=== PATIENT | male | born 1980 | race Two or more races ===

== ENCOUNTER 2018-06-05 15:47 | Emergency (ER) | payer SELFPAY ==
--- NOTE | 2018-06-05 16:38 | ED Physician Chart ---
ED Chief Complaint/HPI - Patient Information Date Seen:: 06/05/18 Time Seen:: 16:00 Chief Complaint:: SCABIES INFECTION History of Present Illness:: THIS IS A 38 YO MALE BIB THE EMS WITH CONCERNED ABOUT A SCABIES INFECTION, HOWEVER Historian:: Patient Review:: Nurse's Note Reviewed ED Review of Systems - Review of Systems General/Constitutional: Other (THE PATIENT REFUSED TO GIVE A REVIEW OF SYSTEMS) ED Past Medical History - Past Medical History Obtainable: Yes (THE PATIENT REFUSED TO GIVE THE PAST MED HISTORY.) Social History: Other (REFUSED) Surgical History: other (REFUSED) Psychiatricy History: Other (REFUSED) ED Physical Exam - Physical Examination Other Gen/Cons comments:: THE PATIENT REFUSED THE PHYSICAL AND WANTS TO SIGN OUT AMA ED Septic Shock - . Is Septic Shock (SBP<90, OR Lactate>4 mmol\L) present?: No ED Reassessment (Disposition) - Diagnosis Diagnosis:: SCABIES INFECTION - Aftercare/Follow up Instructions Aftercare/Follow-Up Instructions:: Counseled pt regarding lab results/diagnosis & need follow up, Refer to Discharge Instructions, Counseled pt & family regarding lab results/diagnosis & need follow up - Patient Disposition Discharge/Transfer:: Against Medical Advice Condition at Disposition:: Unchanged
== END 2018-06-05 16:00 | disposition left against medical advice (07) ==
LOC: ER 15:47 → EDBD 15:47 → ER 16:00
DX: B86 Scabies (principal)
CPT/HCPCS: Z7502

== ENCOUNTER 2019-01-08 23:33 | Emergency (ER) | payer SELFPAY ==
--- NOTE | 2019-01-09 00:04 | ED Physician Chart ---
ED Chief Complaint/HPI - Patient Information Date Seen:: 01/09/19 Time Seen:: 00:01 Chief Complaint:: knee pains History of Present Illness:: 38 yr old male homeless walking much with leg pains no swelling bruising or trauma Allergies:: Allergies Allergy/AdvReac Type Severity Reaction Status Date / Time No Known Allergies Allergy Verified 01/08/19 23:51 Vitals:: Vital Signs - 8 hr 01/08/19 23:40 Temp 97.3 F HR 99 RR 18 BP 121/74 O2 Sat % 94 ED Review of Systems - Review of Systems General/Constitutional: No fever, No chills, No weight loss, No weakness, No diaphoresis, No edema, No loss of appetite Skin: No skin lesions, No rash, No bruising Head: No headache, No light-headedness Eyes: No loss of vision, No pain, No diplopia ENT: No earache, No nasal drainage, No sore throat, No tinnitus Neck: No neck pain, No swelling, No thyromegaly, No stiffness, No mass noted Cardio Vascular: No chest pain, No palpitations, No PND, No orthopnea, No edema Pulmonary: No SOB, No cough, No sputum, No wheezing GI: No nausea, No vomiting, No diarrhea, No pain, No melena, No hematochezia, No constipation, No hematemesis G/U: No dysuria, No frequency, No hematuria Musculoskeletal: No bone or joint pain, No back pain, No muscle pain Endocrine: No polyuria, No polydipsia Psychiatric: No prior psych history, No depression, No anxiety, No suicidal ideation Hematopoietic: No bruising, No lymphadenopathy Allergic/Immuno: No urticaria, No angioedema Neurological: No syncope, No focal symptoms, No weakness, No paresthesia, No headache, No seizure, No dizziness, No confusion, No vertigo ED Past Medical History - Past Medical History Past Medical History: No significant medical hx Family Medical History - Family Member Mother History Unknown: Yes ED Physical Exam - Physical Examination General/Constitutional: Awake, Well-developed, well-nourished, Alert, No distress, GCS 15, Non-toxic appearing, Ambulatory Head: Atraumatic Eyes: Lids, conjuctiva normal, PERRL, EOMI Skin: Nl inspection, No rash, No skin lesions, No ecchymosis, Well hydrated, No lymphadenopathy ENMT: External ears, nose nl, Nasal exam nl, Lips, teeth, gums nl Neck: Nontender, Full ROM w/o pain, No JVD, No nuchal rigidity, No bruit, No mass, No stridor Respiratory: Nl effort/Exclusion, Clear to Auscultation, No Wheeze/Rhonchi/Rales Cardio Vascular: RRR, No murmur, gallop, rubs, NL S1 S2 GI: No tenderness/rebounding/guarding, No organomegaly, No hernia, Normal BS's, Nondistended, No mass/bruits, No McBurney tenderness : No CVA tenderness Extremities: No tenderness or effusion, Full ROM, normal strength in all extremities, No edema, Normal digits & nails Neuro/Psych: Alert/oriented, DTR's symmetric, Normal sensory exam, Normal motor strength, Judgement/insight normal, Mood normal, Normal gait, No focal deficits Misc: Normal back, No paraspinal tenderness ED Assessment - Assessment General Assessment: knee pains ED Septic Shock - . Is Septic Shock (SBP<90, OR Lactate>4 mmol\L) present?: No - <6hrs of presentation: Vital Signs: Vital Signs - 8 hr 01/08/19 23:40 Temp 97.3 F HR 99 RR 18 BP 121/74 O2 Sat % 94 ED Reassessment (Disposition) - Reassessment Reassessment:: etoh abuse homelessness knee pains - Diagnosis Diagnosis:: as above - Aftercare/Follow up Instructions Aftercare/Follow-Up Instructions:: Counseled pt regarding lab results/diagnosis & need follow up - Patient Disposition Discharge/Transfer:: Home Condition at Disposition:: Stable
--- NOTE | 2019-01-09 09:51 | Diagnostic Imaging Report ---
Left knee 3 views Indication: pain Comparison: none Findings: Minimal degenerative changes are noted. No evidence of an acute fracture or dislocation of joint effusion or focal soft tissue swelling. There is suggestion of minimal atherosclerosis. Impression: No evidence of an acute fracture. Minimal degenerative changes. Suggestion of minimal atherosclerosis In the setting of trauma, if clinical symptoms persist and there is continued concern for an occult fracture, follow up exams in 5-7 days is suggested.
--- NOTE | 2019-01-09 09:52 | Diagnostic Imaging Report ---
Right knee 2 views Indication: pain Comparison: none Findings: Minimal degenerative changes are noted. No acute fracture. No joint effusion. No dislocation. There is suggestion of minimal atherosclerosis. Impression: No evidence of an acute fracture. Minimal degenerative changes. Suggestion of minimal atherosclerosis. In the setting of trauma, if clinical symptoms persist and there is continued concern for an occult fracture, follow up exams in 5-7 days is suggested.
== END 2019-01-09 00:23 | disposition home or self-care (01) ==
LOC: ER 23:33
DX: M25.561 Pain in right knee (principal); M25.562 Pain in left knee; F10.10 Alcohol abuse, uncomplicated; R21 Rash and other nonspecific skin eruption; Z59.0 Homelessness; Y90.9 Presence of alcohol in blood, level not specified
CPT/HCPCS: 73560-TC-LT; 73560-TC-RT; Z7502

== ENCOUNTER 2019-01-16 21:29 | Emergency (ER) | payer SELFPAY ==
--- NOTE | 2019-01-16 22:22 | ED Physician Chart ---
ED Chief Complaint/HPI - Patient Information Date Seen:: 01/16/19 Time Seen:: 22:21 Chief Complaint:: Abdominal pain History of Present Illness:: 38 yo homeless male with history of polysubstance abuse, developed abdominal pain after drank alcohol. Pt was lying outside a liquor store and some one called 911. Pt was brought by ambulance to ER. Pt had previous ER visits for knee pain and multiple facial skin lesions. Allergies:: Allergies Allergy/AdvReac Type Severity Reaction Status Date / Time No Known Allergies Allergy Verified 01/08/19 23:51 Vitals:: Vital Signs - 8 hr 01/16/19 21:30 Temp 99.8 F HR 108 RR 18 BP 115/78 O2 Sat % 99 ED Review of Systems - Review of Systems General/Constitutional: No fever Skin: Skin lesions Head: No headache Eyes: No pain ENT: No nasal drainage Neck: No neck pain Cardio Vascular: No chest pain Pulmonary: No SOB GI: Pain Musculoskeletal: Bone or joint pain Neurological: No focal symptoms ED Past Medical History - Past Medical History Past Medical History: Arthritis, Other (Skin lesions, polysubstance abuse) Social History: Alcohol, Illicit Drug Use Family Medical History - Family Member Mother History Unknown: Yes ED Physical Exam - Physical Examination General/Constitutional: Awake Other Skin comments:: Multiple facial skin lesions, with dark brown to black scabs, 0.5-1cm in size, non-itchy ENMT: Nasal exam nl Neck: No nuchal rigidity Respiratory: Clear to Auscultation Cardio Vascular: RRR, No murmur, gallop, rubs, NL S1 S2 Other GI comments:: Periumbilical tenderness Extremities: normal strength in all extremities Neuro/Psych: No focal deficits ED Labs/Radiology/EKG Results - Lab Results Results: Laboratory Last Values WBC 11.4 Th/cmm (4.8-10.8) H 01/16/19 22:30 RBC 3.18 Mil/cmm (4.30-5.70) L 01/16/19 22:30 Hgb 8.1 gm/dL (12-16) L 01/16/19 22:30 Hct 24.5 % (41.0-60) L 01/16/19 22:30 MCV 77.1 fl (80-99) L 01/16/19 22:30 MCH 25.5 pg (26.0-30.0) L 01/16/19 22:30 MCHC Differential 33.1 pg (28.0-36.0) 01/16/19 22:30 RDW 26.2 % (11.5-20.0) H 01/16/19 22:30 Plt Count 175 Th/cmm (150-400) 01/16/19 22:30 MPV 7.6 fl 01/16/19 22:30 Add Manual Diff YES 01/16/19 22:30 Band Neutrophils % 2 % (0-10) 01/16/19 22:30 Neutrophils (Manual) 76 % (40-80) 01/16/19 22:30 Lymphocytes 11 % (20-50) L 01/16/19 22:30 Monocytes 9 % (2-10) 01/16/19 22:30 Eosinophils 0 % (0-5) 01/16/19 22:30 Basophils 2 % (0-3) 01/16/19 22:30 Platelet Estimate ADEQUATE (NORMAL) 01/16/19 22:30 Anisocytosis 2+ 01/16/19 22:30 Microcytosis 1+ 01/16/19 22:30 PT 13.4 SECONDS (9.5-11.5) H 01/16/19 22:30 INR 1.31 (0.5-1.4) 01/16/19 22:30 PTT (Actin FS) 30.1 SECONDS (26.0-38.0) 01/16/19 22:30 Sodium 134 mEq/L (136-145) L 01/16/19 22:17 Potassium 2.9 mEq/L (3.5-5.1) L* 01/16/19 22:17 Chloride 98 mEq/L (98-107) 01/16/19 22:17 Carbon Dioxide 23.9 mEq/L (21.0-31.0) 01/16/19 22:17 Anion Gap 15.0 (7.0-16.0) 01/16/19 22:17 BUN 5 mg/dL (7-25) L 01/16/19 22:17 Creatinine 0.5 mg/dL (0.7-1.3) L 01/16/19 22:17 Est GFR ( Amer) > 60.0 ml/min (>90) 01/16/19 22:17 Est GFR (Non-Af Amer) > 60.0 ml/min 01/16/19 22:17 BUN/Creatinine Ratio 10.0 01/16/19 22:17 Glucose 80 mg/dL (70-105) 01/16/19 22:17 Whole Bld Lactic Acid 0.66 mmol/L (0.60-1.99) 01/17/19 03:15 Calcium 8.0 mg/dL (8.6-10.3) L 01/16/19 22:17 Total Bilirubin 5.2 mg/dL (0.3-1.0) H 01/16/19 22:17 AST 141 U/L (13-39) H 01/16/19 22:17 ALT 25 U/L (7-52) 01/16/19 22:17 Alkaline Phosphatase 265 U/L (34-104) H 01/16/19 22:17 Total Protein 6.8 gm/dL (6.0-8.3) 01/16/19 22:17 Albumin 3.0 gm/dL (4.2-5.5) L 01/16/19 22:17 Globulin 3.8 gm/dL 01/16/19 22:17 Albumin/Globulin Ratio 0.8 (1.0-1.8) L 01/16/19 22:17 Amylase 20 U/L (29-103) L 01/16/19 22:17 Lipase 12 U/L (11-82) 01/16/19 22:17 Urine Source MIDSTREAM 01/17/19 06:10 Urine Color ORANGE 01/17/19 06:10 Urine Clarity HAZY (CLEAR) 01/17/19 06:10 Urine pH 7.5 (4.6 - 8.0) 01/17/19 06:10 Ur Specific [place] 1.010 (1.005-1.030) 01/17/19 06:10 Urine Protein TRACE mg/dL (NEGATIVE) 01/17/19 06:10 Urine Glucose (UA) NEGATIVE mg/dL (NEGATIVE) 01/17/19 06:10 Urine Ketones 15 mg/dL (NEGATIVE) H 01/17/19 06:10 Urine Blood NEGATIVE (NEGATIVE) 01/17/19 06:10 Urine Nitrate NEGATIVE (NEGATIVE) 01/17/19 06:10 Urine Bilirubin LARGE (NEGATIVE) H 01/17/19 06:10 Urine Ictotest POSITIVE (NEGATIVE) H 01/17/19 06:10 Urine Urobilinogen >=8.0 E.U./dL (0.2 - 1.0) H 01/17/19 06:10 Ur Leukocyte Esterase NEGATIVE (NEGATIVE) 01/17/19 06:10 Urine RBC 0-2 /hpf (0-5) H 01/17/19 06:10 Urine WBC 0-2 /hpf (0-5) 01/17/19 06:10 Ur Epithelial Cells OCCASIONAL /lpf (FEW) 01/17/19 06:10 Urine Bacteria NONE SEEN /hpf (NONE SEEN) 01/17/19 06:10 Urine Opiates Screen NEGATIVE (NEGATIVE) 01/17/19 06:10 Urine Methadone Screen NEGATIVE (NEGATIVE) 01/17/19 06:10 Ur Barbiturates Screen NEGATIVE (NEGATIVE) 01/17/19 06:10 Ur Tricyclics Screen NEGATIVE (NEGATIVE) 01/17/19 06:10 Ur Phencyclidine Scrn NEGATIVE (NEGATIVE) 01/17/19 06:10 Amphetamines Screen POSITIVE (NEGATIVE) H 01/17/19 06:10 U Methamphetamines Scrn POSITIVE (NEGATIVE) H 01/17/19 06:10 U Benzodiazepines Scrn NEGATIVE (NEGATIVE) 01/17/19 06:10 U Cocaine Metab Screen NEGATIVE (NEGATIVE) 01/17/19 06:10 U Cannabinoids Screen NEGATIVE (NEGATIVE) 01/17/19 06:10 Ethyl Alcohol 29 mg/dL (0-10) H 01/16/19 22:17 - Radiology Results Results: CT abdomen/pelvis: mucosal thickening of the ascending colon versus appearance due to underdistention, suggestive of possible colitis (urgent night radiology reading); hepatomegaly with fatty infiltration (final radiology reading). ED Assessment - Assessment General Assessment: Leukocytosis Anemia, microcytic Transaminitis Alcoholic liver disease Hypokalemia Polysubstance abuse Assessment/Comments:: CBC, CMP, PT/PTT, UA, urine drug screen KCL 40 mEq PO x 1 Pantoprazole 40 mg PO x 1 NS 1.5 L IV bolus Rocephin 1 g IV x 1 Flagyl 500 mg IV x 1 ED Septic Shock - . Is Septic Shock (SBP<90, OR Lactate>4 mmol\L) present?: No - <6hrs of presentation: Vital Signs: Vital Signs - 8 hr 01/16/19 21:30 Temp 99.8 F HR 108 RR 18 BP 115/78 O2 Sat % 99 ED Reassessment (Disposition) - Reassessment Reassessment Condition:: Improved - Aftercare/Follow up Instructions Notes:: Follow up PCP and clinical laboratory technician GABRIEL Alcohol cessation Social placement - Patient Disposition Discharge/Transfer:: Home
[2019-01-16 22:51] LABS: INR 1.31 (0.5-1.4)
[2019-01-16 22:54] LABS: HEMATOCRIT 24.5 % (41.0-60); HEMOGLOBIN 8.1 gm/dL (12-16); MEAN CELL VOLUME 77.1 fl (80-99); MEAN CORPUSCULAR HEMOGLOBIN 25.5 pg (26.0-30.0); MEAN CORPUSCULAR HGB CONC 33.1 pg (28.0-36.0); PLATELET COUNT 175 Th/cmm (150-400); RED BLOOD COUNT 3.18 Mil/cmm (4.30-5.70); RED CELL DISTRIBUTION WIDTH 26.2 % (11.5-20.0); WHITE BLOOD COUNT 11.4 Th/cmm (4.8-10.8)
[2019-01-16 22:56] LABS: ALB/GLOB RATIO 0.8 (1.0-1.8); ALKALINE PHOSPHATASE 265 U/L (34-104); AMYLASE SERUM 20 U/L (29-103); BILIRUBIN,TOTAL 5.2 mg/dL (0.3-1.0); BUN - UREA NITROGEN 5 mg/dL (7-25); CARBON DIOXIDE 23.9 mEq/L (21.0-31.0); CHLORIDE 98 mEq/L (98-107); CREATININE - SERUM 0.5 mg/dL (0.7-1.3); GFR AFRICAN-AMERICAN > 60.0 ml/min (>90); GFR NON AFRICAN-AMERICAN > 60.0 ml/min; GLUCOSE 80 mg/dL (70-105); LIPASE 12 U/L (11-82); SGOT 141 U/L (13-39); SGPT/ALT 25 U/L (7-52); SODIUM SERUM 134 mEq/L (136-145); TOTAL PROTEIN,SERUM 6.8 gm/dL (6.0-8.3)
[2019-01-16] MEDS ORDERED: Pantoprazole 40 mg EC Tab PO STA (22:57)
[2019-01-16] MEDS ORDERED: Pantoprazole 40 mg EC Tab PO ONE (23:10)
[2019-01-16 23:17] LABS: POTASSIUM SERUM 2.9 mEq/L (3.5-5.1)
[2019-01-16] MEDS ORDERED: Potassium Chloride 20 mEq ER Tab PO ONE ×2 (23:27→23:30)
[2019-01-16] MEDS ORDERED: Sodium Chloride 0.9% 1,000 ML IV ONE (23:33)
[2019-01-16 23:45] LABS: BAND NEUTROPHILE 2 % (0-10); BASOPHIL 2 % (0-3); EOSINOPHIL 0 % (0-5); LYMPHOCYTE 11 % (20-50); MONOCYTE 9 % (2-10); NEUTROPHILS 76 % (40-80)
[2019-01-16 23:47] LABS: ANISOCYTOSIS 2+; PLATELET ESTIMATE ADEQUATE (NORMAL)
[2019-01-16] MEDS ORDERED: cefTRIAXone 1 GM in Sodium Chloride 0.9% 50 ML IV ONE (23:58)
[2019-01-16] MEDS ORDERED: metroNIDAZOLE 500mg/NS 100mL 500 MG/100 ML BAG IV ONE (23:58)
[2019-01-17] MEDS ORDERED: metroNIDAZOLE 500mg/NS 100mL 500 MG/100 ML BAG IV ONE (00:02)
[2019-01-17] MEDS ORDERED: Sodium Chloride 0.9% 500 ML IV ONE (00:33)
[2019-01-17 06:30] LABS: URINE SOURCE MIDSTREAM
[2019-01-17 06:33] LABS: URINE BILIRUBIN LARGE (NEGATIVE); URINE BLOOD NEGATIVE (NEGATIVE); URINE GLUCOSE (UA) NEGATIVE (NEGATIVE); URINE KETONE 15 mg/dL (NEGATIVE); URINE LEUKOCYTE ESTERASE NEGATIVE (NEGATIVE); URINE MICROSCOPIC INDICATED? YES; URINE NITRATE NEGATIVE (NEGATIVE); URINE PH 7.5 (4.6 - 8.0); URINE PROTEIN TRACE mg/dL (NEGATIVE); URINE UROBILINOGEN >=8.0 E.U./dL (0.2 - 1.0)
[2019-01-17 06:48] LABS: AMPHETAMINE URINE POSITIVE (NEGATIVE); BARBITURATES URINE NEGATIVE (NEGATIVE); BENZODIAZEPINES QUAL URINE NEGATIVE (NEGATIVE); CANNABINOID THC NEGATIVE (NEGATIVE); COCAINE METABOLITE QUAL URINE NEGATIVE (NEGATIVE); METHADONE URINE NEGATIVE (NEGATIVE); METHAMPHETAMINES QUAL URINE POSITIVE (NEGATIVE); OPIATES (MORPHINE) QUAL. URINE NEGATIVE (NEGATIVE); PHENCYCLIDINE (PCP) URINE NEGATIVE (NEGATIVE); TRICYCLICS (TCA) QUAL. URINE NEGATIVE (NEGATIVE)
[2019-01-17 06:49] LABS: URINE CLARITY HAZY (CLEAR); URINE COLOR ORANGE; URINE ICTOTEST POSITIVE (NEGATIVE)
[2019-01-17 06:53] LABS: URINE BACTERIA NONE SEEN /hpf (NONE SEEN); URINE EPITHELIAL CELLS OCCASIONAL /lpf (FEW); URINE RBC 0-2 /hpf (0-5); URINE WBC 0-2 /hpf (0-5)
--- NOTE | 2019-01-17 08:47 | Diagnostic Imaging Report ---
CT scan abdomen and pelvis without intravenous contrast HISTORY: Pain Total DLP equals CTDI equals Axial sections were obtained from the xiphoid process down to the pubic symphysis. The liver appears enlarged. There is a decrease in overall hepatic parenchymal density consistent with fatty infiltration. No focal lesions. The changes should be correlated with liver function tests. The spleen appears normal. No focal adenopathy seen within the pancreas. No focal renal lesions. No hydronephrosis. The exam of the pelvis demonstrates preservation of normal fat planes. No abnormal soft tissue masses or abnormal fluid collections. No bowel dilatation. No abnormality seen in the region of the appendix. IMPRESSION: 1. No definite acute abnormalities 2. Hepatomegaly along with findings consistent with fatty infiltration. The changes should be correlated with liver function tests.
== END 2019-01-17 06:35 | disposition home or self-care (01) ==
LOC: ER 21:29
DX: E87.6 Hypokalemia (principal); D50.9 Iron deficiency anemia, unspecified; D72.829 Elevated white blood cell count, unspecified; F19.10 Other psychoactive substance abuse, uncomplicated; K70.9 Alcoholic liver disease, unspecified; R74.0 Nonspecific elevation of levels of transaminase and lactic acid dehydrogenase [LDH]; F10.10 Alcohol abuse, uncomplicated; Y90.1 Blood alcohol level of 20-39 mg/100 ml; M19.90 Unspecified osteoarthritis, unspecified site
CPT/HCPCS: 99284; 96365; 96368; 74176; 36415 ×2; 83605 ×2; 80307; 85007; 85025; 85610; 81001; 80320; 82150; 83690; 80053; 87040 ×2; J0696; J7040; 90799; J7030; Z7610